=== PATIENT | female | born 1970 | race Caucasian/White ===

== ENCOUNTER 2023-10-16 17:17 | Emergency (ER) | payer SELFPAY ==
[~2023-10-16] VITALS: Ht 147.3 cm; Wt 70.0 kg
[2023-10-16] VITALS (10 sets, daily range): BP systolic 104–170; BP diastolic 67–129
[~2023-10-16 17:17] MED LIST: ALEVE220 MG OR; AMOX/K CLAV875 M1 PO; AMOXICILLIN500 MG PO; BACTRIM DS1 TAB PO; CIPRO500 MG OR; CIPROFLOXACN500 MG PO; DEPO-MEDROL80 MG/ML IM; KETOROLAC60 MG/2 ML IJ; LORTAB 5 OR; NO HOME MEDS; PENICILLN VK500 MG OR; PYRIDIUM200 MG OR; PYRIDIUM200 MG PO; TAM75CAP PO; TRAMADOL HCL50 MG PO; ULTRAM50 MG OR; ZYRTEC10 M1 PO
[2023-10-16 18:07] LABS: BASO% 0.3 % (0-3); EOS% 1.3 % (0-8); HEMATOCRIT 37.4 % (37.0-47.0); HEMOGLOBIN 12.1 g/dl (12.0-16.0); IMMATURE GRANULOCYTES 0.3 % (0.0-5.0); LYMPH% 19.2 % (15-41); MEAN CELL VOLUME 81.1 fL CALC (80.0-100.0); MEAN CORPUSCULAR HGB 26.2 pG CALC (26.0-32.0); MEAN CORPUSCULAR HGB CONC 32.4 g/dL CAL (32.0-36.0); MONO% 3.6 % (2-13); NEUT# 8.67 thou/uL (2.00-7.15); NEUT% 75.3 % (42-76); RED BLOOD COUNT 4.61 mill/uL (4.20-5.60); RED CELL DISTRI WIDTH 13.7 % (11.5-15.5)
[2023-10-16 18:22] LABS: URINE BILIRUBIN - DIPSTICK Negative (NEGATIVE); URINE BLOOD DIPSTICK Small (NEGATIVE); URINE GLUCOSE - DIPSTICK Negative (NEGATIVE); URINE KETONE Negative (NEGATIVE); URINE NITRITE - DIPSTICK Negative (Negative); URINE PROTEIN - DIPSTICK Negative (NEG-TRACE); URINE SPECIFIC GRAVITY 1.025
[2023-10-16 18:25] LABS: URINE COLOR Yellow; URINE LEUK ESTERASE Large (NEGATIVE)
[2023-10-16 18:30] LABS: URINE BACTERIA MODERATE hpf; URINE SQUAMOUS EPITHELIAL CELL MODERATE EPI/hpf (0-FEW)
[2023-10-16 18:30] LABS: ALBUMIN 4.6 g/dL (3.2-5.0); ALKALINE PHOSPHATASE 83 u/l (38-126); AMYLASE 77 u/l (30-110); ANION GAP 11 (6-22 (CALC)); BILIRUBIN, TOTAL 0.6 mg/dL (0.02-1.3); BUN 15 mg/dL (7-17); BUN/CREATININE RATIO 26 (12-20 (CALC)); CARBON DIOXIDE 27 mmol/l (22-30); CHLORIDE 106 mmol/l (95-108); CREATININE 0.6 mg/dL (0.5-1.0); GFR FOR AFR.AMER. > 60 ML/MIN (>=60 (CALC)); GFR OTHER RACES > 60 ML/MIN (>=60 (CALC)); LIPASE 105 u/l (23-300); POTASSIUM 3.8 mmol/l (3.5-5.1); SGOT/AST 35 u/l (14-36); SODIUM 140 mmol/l (137-146); TOTAL PROTEIN 8.7 g/dL (6.3-8.2)
[2023-10-16] MEDS ORDERED: MAGNESIUM CITRATE 296 ML/BTL PO ONE (18:50)
[2023-10-16] MEDS ORDERED: SULFAMETHOXAZOLE W/TRIMETHOPRI 1 COMBO TAB PO ONE (18:50)
[2023-10-16] MEDS ORDERED: BACTRIM DS1 TAB PO (18:56)
[2023-10-16] MEDS ORDERED: METRONIDAZOLE0.75 % EX (18:56)
== END 2023-10-16 20:11 | disposition home or self-care (01) | DRG 392 ==
LOC: ED 17:17
PROVIDERS: Nurse Practitioner Family
DX: K59.00 Constipation, unspecified (principal); N39.0 Urinary tract infection, site not specified; N76.0 Acute vaginitis

== ENCOUNTER 2024-03-20 18:08 | Emergency (ER) | payer OTHER ==
[~2024-03-20] VITALS: Ht 147.3 cm; Wt 61.2 kg
[~2024-03-20 18:08] MED LIST changes: +METRONIDAZOLE0.75 % EX
[2024-03-20 18:18] VITALS: BP 138/80
[2024-03-20] MEDS ORDERED: KETOROLAC TROMETHAMINE 30 MG/ML SDV IM ONE (18:30)
[2024-03-20] MEDS ORDERED: PENicillin V POTASSIUM 500 MG/TAB PO ONE (18:30)
[2024-03-20 18:31] VITALS: BP 150/86
[2024-03-20] MEDS ORDERED: NAPROXEN500 MG PO (18:37)
[2024-03-20] MEDS ORDERED: PENICILLN VK500 MG PO (18:37)
[2024-03-20 18:42] VITALS: BP 152/123
[2024-03-20 18:44] VITALS: BP 133/80
[2024-03-20 18:45] VITALS: BP 133/80
== END 2024-03-20 18:43 | disposition home or self-care (01) | DRG 159 ==
LOC: ED 18:08
DX: K04.7 Periapical abscess without sinus (principal); K02.9 Dental caries, unspecified; K05.10 Chronic gingivitis, plaque induced; S02.5XXA Fracture of tooth (traumatic), initial encounter for closed fracture; X58.XXXA Exposure to other specified factors, initial encounter